=== PATIENT | male | born 1995 | race Native Hawaiian/Other Pacific Islander ===

== ENCOUNTER 2018-04-18 19:27 | Emergency (ER) | payer BC ==
[~2018-04-18] VITALS: Ht 170.2 cm; Wt 90.7 kg
[~2018-04-18 19:27] MED LIST: CELEXA10 MG PO; LORA0.5T17 PO
[2018-04-18 20:10] LABS: PLATELET COUNT 248 K/uL (142-355)
[2018-04-18 20:17] LABS: POTASSIUM 3.7 mmol/L (3.6-5.2)
[2018-04-18 22:43] VITALS: BP 136/85; TEMP 97.3
== END 2018-04-18 22:45 | disposition home or self-care (01) ==
LOC: ED 19:27
DX: N20.0 Calculus of kidney (principal)
CPT/HCPCS: 36415; 80053; 81000; 82150; 83690; 85027; 96374; 99284; J1885; Q9963

== ENCOUNTER 2019-04-16 15:35 | Emergency (ER) | payer BC ==
[~2019-04-16] VITALS: Ht 170.2 cm; Wt 90.7 kg
[2019-04-16 15:47] VITALS: TEMP 99
[2019-04-16 17:05] VITALS: BP 122/76
== END 2019-04-16 17:05 | disposition home or self-care (01) ==
LOC: ED 15:35
DX: J03.90 Acute tonsillitis, unspecified (principal)
CPT/HCPCS: 87651; 99282

== ENCOUNTER 2019-06-16 07:47 | Outpatient (CLI) | payer BC | END 2019-06-16 20:07 | disposition home or self-care (01) | LOC: CT 07:47 | DX: R51 Headache (principal) ==

== ENCOUNTER 2020-05-25 10:17 | Outpatient (CLI) | payer OTHER | END 2020-05-25 21:53 | disposition home or self-care (01) | LOC: LAB 10:17 | DX: Z11.59 Encounter for screening for other viral diseases (principal); R53.83 Other fatigue; R05 Cough; R06.02 Shortness of breath | CPT/HCPCS: 87635; G2023; U0003 ==

== ENCOUNTER 2020-06-09 14:10 | Outpatient (CLI) | payer OTHER ==
[2020-06-09 14:46] LABS: POTASSIUM 4.1 mmol/L (3.6-5.2)
== END 2020-06-10 | disposition home or self-care (01) ==
LOC: LABW 14:10
PROVIDERS: Nurse Practitioner Family
DX: R53.83 Other fatigue (principal); R52 Pain, unspecified; R50.9 Fever, unspecified
CPT/HCPCS: 36415; 80053; 85651; 86038; 86140; 86308; 86430

== ENCOUNTER 2020-06-11 16:16 | Emergency (ER) | payer OTHER ==
[~2020-06-11] VITALS: Ht 170.2 cm; Wt 95.3 kg
[2020-06-11 17:28] LABS: PLATELET COUNT 290 K/uL (142-355)
[2020-06-11 17:33] LABS: POTASSIUM 3.6 mmol/L (3.6-5.2)
[2020-06-11 18:24] VITALS: BP 112/69; TEMP 98.5
== END 2020-06-11 18:25 | disposition home or self-care (01) ==
LOC: ED 16:16
PROVIDERS: Family Medicine
DX: N20.0 Calculus of kidney (principal); Z87.442 Personal history of urinary calculi
CPT/HCPCS: 36415; 80053; 81000; 85027; 99283